=== PATIENT | male | born 2000 | race Caucasian/White ===

== ENCOUNTER 2019-05-04 13:28 | Emergency (ER) | payer BC, MEDICAID ==
[~2019-05-04] VITALS: Ht 185.4 cm; Wt 89.8 kg
[2019-05-04 13:41] VITALS: BP 136/88
[2019-05-04] MEDS ORDERED: PROCHLORPERAZINE 5 MG/ML, 2ML IVPush ONE (14:00)
[2019-05-04] MEDS ORDERED: DIPHENHYDRAMINE 50 MG/ML, 1ML IVPush ONE (14:00)
[2019-05-04] MEDS ORDERED: SODIUM CHLORIDE FLUSH 10ML SYR IVF ONE (14:00)
--- NOTE | 2019-05-04 16:45 | NUR ---
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
--- NOTE | 2019-05-04 17:00 | NUR ---
PT STATES SOTELO IMPROVED SINCE HIS ARRIVAL WHILE AWAITING ROOM ASSIGNMENT IN LOBBY. DECLINING MEDICATION.
--- NOTE | 2019-05-04 18:19 | NUR ---
AFTER MD AUGUSTIN, PT GIVEN DISCHARGE WITH NEURO REFERRAL
== END 2019-05-04 18:22 | disposition home or self-care (01) ==
LOC: ED 18:15
DX: G43.111 Migraine with aura, intractable, with status migrainosus (principal)
CPT/HCPCS: 99281